=== PATIENT | male | born 2000 | race African-American/Black ===

== ENCOUNTER 2020-12-15 16:42 | Emergency (ER) | payer OTHER, SELFPAY ==
--- NOTE | 2020-12-15 16:46 | PC.NURSE ---
code terminated unsuccessful
--- NOTE | 2020-12-15 17:07 | PC.NURSE ---
[facility] Coroner notified. will be en route to ed.
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
--- NOTE | 2020-12-15 17:35 | PC.NURSE ---
nathalie shelley notified. states officer and sole leveler currently with parents
--- NOTE | 2020-12-15 18:00 | PC.NURSE ---
thai from [facility] coroners office at bedside.
== END 2020-12-15 21:05 | disposition expired ==
PROVIDERS: Emergency Provider Emergency Medicine; PCP Pediatrics
DX: S30.1XXA Contusion of abdominal wall, initial encounter (principal); S20.211A Contusion of right front wall of thorax, initial encounter; I46.8 Cardiac arrest due to other underlying condition; V23.4XXA Motorcycle driver injured in collision with car, pick-up truck or van in traffic accident, initial encounter
CPT/HCPCS: 92950; 99285